=== PATIENT | female | born 2000 | race African-American/Black ===

== ENCOUNTER 2019-02-12 22:06 | Inpatient (IN) ==
[2019-02-12] MEDS ORDERED: LACTATED RINGERS 500 ML IV PRN (22:23)
[2019-02-12] MEDS ORDERED: ONDANSETRON 4 MG/2 ML VIAL IV PRN (22:23)
[2019-02-12] MEDS ORDERED: MEPERIDINE 50 MG/1 ML VIAL IV PRN (22:23)
[2019-02-12 23:11] LABS: Basophils % 0.3 % (0.0-0.8); Eosinophils # 0.1 10*3/uL (0.0-0.87); Eosinophils % 1.1 % (0.00-10.9); Hemoglobin 9.7 GM/DL (12.0-16.0); Immature Granulocytes % 1.1 %; Immature Granulocytes Absolute 0.11 #; Lymphocytes # 2.2 10*3/uL (1.4-4.0); Lymphocytes % 20.7 % (21.3-54.2); Mean Corpuscular HGB Conc 32.3 GM/DL (32-36); Mean Corpuscular Volume 94.3 FL (87-102); Mean Platelet Volume 9.8 FL (9.6-12.0); Monocytes % 10.4 % (1.7-12.7); Neutrophils % 66.4 % (38.7-73.9); Platelet Count 345 T/CUMM (130-400); Red Blood Count 3.18 MC/CUMM (3.8-5.5); Red Cell Distribution Width 14.3 % (9.3-17.3); White Blood Count 10.5 T/CUMM (4-12)
[2019-02-12] MEDS: LACTATED RINGERS 1,000 ML IV SCH (23:15)
[2019-02-12 23:31] LABS: Alanine Aminotransferase 17 U/L (13-56); Alkaline Phosphatase 177 U/L (45-117); Aspartate Amino Transferase 19 U/L (0-37); Bilirubin,Total < 0.39 MG/DL (0.2-1.0); Blood Urea Nitrogen 10 MG/DL (7-18); Glucose 100 MG/DL (74-106); Osmolality,Calculated 273.7 MOS/KG (273-304); Total Protein 7.4 G/DL (6.4-8.3)
[2019-02-13 00:24] LABS: Apearance,Urine CLEAR (Clear); Bacteria,Urine Occasional /HPF (Few); Bilirubin,Urine Negative (Negative); Blood, Urine Negative (Negative); Glucose,Urine (UA) 50 mg/dL (Negative); Ketones,Urine Negative (Negative); Mucus,Urine Occasional /LPF (Occasional); Nitrite,Urine Negative (Negative); Protein,Urine Negative; RBC,Urine 1 /HPF (0-4); Squamous Epithelial Cell,Urine Occasional /HPF (0-10); Urine Color Yellow (Yellow); Urine Specific Gravity 1.012 (1.001-1.035); Urine Urobilinogen < 2.0 EU/DL (0.2-1.0); WBC,Urine 3 /HPF (0-6)
[2019-02-13] MEDS: CLINDAMYCIN INJ 900 MG in PREMIX 1 EACH IV SCH ×2 (01:16→09:31)
[2019-02-13] MEDS ORDERED: OXYTOCIN/LR 20 UNIT/1,000 ML BAG IV SCH (06:00)
[2019-02-13] MEDS: LACTATED RINGERS 1,000 ML IV SCH (06:51)
[2019-02-13] MEDS: BUTORPHANOL 2 MG/ML VIAL IV PRN ×2 (07:50→10:43)
[2019-02-13] MEDS ORDERED: NALOXONE 0.4 MG/ML VIAL IV PRN (10:46)
[2019-02-13] MEDS ORDERED: diphenhydrAMINE 50 MG/1 ML VIAL IV PRN ×2 (10:46)
[2019-02-13] MEDS ORDERED: ePHEDrine 50 MG/ML AMP IV PRN (10:46)
[2019-02-13] MEDS ORDERED: FAMOTIDINE 20 MG/2 ML VIAL IV ONE (10:46)
[2019-02-13] MEDS ORDERED: hydrOXYzine HCL 25 MG/1 ML VIAL IM PRN (10:46)
[2019-02-13] MEDS ORDERED: PROMETHAZINE 25 MG/1 ML VIAL IM ONE (10:46)
[2019-02-13] MEDS ORDERED: CITRIC ACID/SODIUM CITRATE 30 ML UDCUP PO ONE (10:46)
[2019-02-13] MEDS ORDERED: LACTATED RINGERS 1,000 ML IV ONE (10:46)
[2019-02-13] MEDS ORDERED: ONDANSETRON 4 MG/2 ML VIAL IV ONE (10:46)
[2019-02-13] MEDS ORDERED: fentaNYL 2 MCG/ROPIV 0.2% EPID 100 ML EPIDURAL SCH (11:00)
[2019-02-13] MEDS ORDERED: TRANEXAMIC ACID 1,000 MG/10 ML VIAL ONE (12:53)
[2019-02-13] MEDS ORDERED: CARBOPROST TROMETHAMINE 250 MCG/ML AMP IM ONE (12:53)
[2019-02-13] MEDS ORDERED: OXYTOCIN/LR 20 UNIT/1,000 ML BAG IV ONE ×2 (12:53→17:19)
[2019-02-13] MEDS ORDERED: METHYLERGONOVINE 0.2 MG/1 ML AMP ONE (12:53)
[2019-02-13] MEDS ORDERED: miSOPROStol 200 MCG TABLET ONE (12:53)
[2019-02-13] MEDS ORDERED: LIDOCAINE 1% 50 ML VIAL ONE (12:54)
[2019-02-13 14:05] LABS: Apearance,Urine CLEAR (Clear); Bacteria,Urine Occasional /HPF (Few); Bilirubin,Urine Negative (Negative); Blood, Urine Negative (Negative); Glucose,Urine (UA) 50 mg/dL (Negative); Ketones,Urine 5 mg/dL (Negative); Nitrite,Urine Negative (Negative); Protein,Urine Negative; RBC,Urine 1 /HPF (0-4); Squamous Epithelial Cell,Urine Occasional /HPF (0-10); Urine Color Straw (Yellow); Urine Specific Gravity 1.013 (1.001-1.035); Urine Urobilinogen < 2.0 EU/DL (0.2-1.0); WBC,Urine <1 /HPF (0-6)
[2019-02-13] MEDS ORDERED: MEASLES/MUMPS/RUBELLA VACCINE 0.5 ML VIAL SUBCUT ONE (17:19)
[2019-02-13] MEDS ORDERED: ONDANSETRON 4 MG/2 ML VIAL IV PRN (17:19)
[2019-02-13] MEDS ORDERED: BISACODYL 10 MG SUPP RECTAL PRN (17:19)
[2019-02-13] MEDS ORDERED: oxyCODONE/ACETAMINOPHEN 5-325 MG TABLET PO PRN (17:19)
[2019-02-13] MEDS ORDERED: HYDROCORTISONE 2.5% RECTAL CREAM 30 GM TUBE TOP PRN (17:19)
[2019-02-13] MEDS ORDERED: DIPH/TET/ACEL PERT BOOSTER VACCINE 0.5 ML VIAL IM ONE (17:19)
[2019-02-13] MEDS ORDERED: LANOLIN 50% CREAM 0.3 OZ TUBE TOP PRN (17:19)
[2019-02-13] MEDS ORDERED: ACETAMINOPHEN 325 MG TABLET PO PRN (17:19)
[2019-02-13] MEDS ORDERED: WITCH HAZEL PADS 100/JAR TOP PRN (17:19)
[2019-02-13] MEDS ORDERED: RHO(D) IMMUNE GLOBULIN 300 MCG SYRINGE IM ONE (17:19)
[2019-02-13] MEDS ORDERED: BENZOCAINE 20%/MENTHOL 0.5% SPRAY 56 GM CAN TOP PRN (17:19)
[2019-02-13] MEDS: IBUPROFEN 800 MG TABLET PO PRN (19:06)
[2019-02-14] MEDS: DOCUSATE SODIUM 100 MG CAPSULE PO SCH ×3 (00:40→21:27)
[2019-02-14] MEDS: oxyCODONE/ACETAMINOPHEN 5-325 MG TABLET PO PRN ×2 (05:33→21:57)
[2019-02-14 06:52] LABS: Eosinophils % 0.1 % (0.00-10.9)
[2019-02-14 06:59] LABS: Basophils % 0.2 % (0.0-0.8); Hematocrit 22.3 VOL% (35.7-47.0); Immature Granulocytes % 0.8 %; Immature Granulocytes Absolute 0.11 #; Lymphocytes # 1.1 10*3/uL (1.4-4.0); Lymphocytes % 7.5 % (21.3-54.2); Mean Corpuscular HGB Conc 33.2 GM/DL (32-36); Mean Corpuscular Volume 94.5 FL (87-102); Mean Platelet Volume 9.7 FL (9.6-12.0); Monocytes % 9.6 % (1.7-12.7); Neutrophils % 81.8 % (38.7-73.9); Red Cell Distribution Width 14.5 % (9.3-17.3)
[2019-02-14 07:02] LABS: Hemoglobin 7.4 GM/DL (12.0-16.0); Platelet Count 202 T/CUMM (130-400); Red Blood Count 2.36 MC/CUMM (3.8-5.5); White Blood Count 14.6 T/CUMM (4-12)
[2019-02-14 07:14] LABS: Band Neutrophils 2 % (0-10); Lymphocytes 4 % (20-55); Platelet Estimate Adequate; Segmented Neutrophils 84 % (50-85); Total Cells Counted 100
[2019-02-14 07:15] LABS: Hypochromasia 1+
[2019-02-14] MEDS: IBUPROFEN 800 MG TABLET PO PRN (15:14)
[2019-02-14] MEDS: FERROUS SULFATE 325 MG TABLET PO SCH (21:27)
[2019-02-15 09:02] VITALS: BP 93/42
[2019-02-15] MEDS: DOCUSATE SODIUM 100 MG CAPSULE PO SCH (10:15)
[2019-02-15] MEDS: FERROUS SULFATE 325 MG TABLET PO SCH (10:15)
[2019-02-15] MEDS ORDERED: DIPH/TET/ACEL PERT BOOSTER VACCINE 0.5 ML VIAL IM ONE (13:17)
== END 2019-02-15 14:15 | disposition home or self-care (01) | DRG 807 ==
LOC: N.LDOUT 22:06 → N.LD 22:09 → N.OB 02-13 20:25
PROVIDERS: ADMIT Specialist; ATTEND Specialist